=== PATIENT | female | born 1980 | race Two or more races ===

== ENCOUNTER 2025-06-14 20:28 | Emergency (ER) | payer MEDICAID, SELFPAY ==
--- NOTE | 2025-06-14 21:34 | PC.NURSE ---
CALLED FOR PT FROM [facility], NO ANSWERX1@ [phone]
--- NOTE | 2025-06-14 22:10 | PC.NURSE ---
CALLED FOR PT FROM [facility], NO ANSWERX2@ [phone]
== END 2025-06-14 22:23 | disposition left against medical advice (07) ==
PROVIDERS: Emergency Provider Emergency Medicine
DX: Z53.21 Procedure and treatment not carried out due to patient leaving prior to being seen by health care provider (principal)
CPT/HCPCS: 99282